=== PATIENT | male | born 1950 | race Caucasian/White ===

== ENCOUNTER → 2017-05-16 | Outpatient (CLI) | payer OTHER | LOC: BHCLAF 08:30 | PROVIDERS: ATTEND Internal Medicine Cardiovascular Disease | DX: R00.2 Palpitations (principal) | CPT/HCPCS: 93306-PO ==

== ENCOUNTER 2017-10-05 08:16 | Emergency (ER) | payer OTHER ==
[2017-10-05 08:31] VITALS: RESP 18; O2SAT 94
[2017-10-05] MEDS ORDERED: AZITHROMYCIN 250 MG TAB PO ONE (09:58)
--- NOTE | 2017-10-05 10:19 | EDPHY ---
H & P Time Seen by Provider: 10/05/17 08:34 HPI/ROS: This patient presents with a one-week history of dry cough and 1 day history of myalgias and fevers. The myalgias and fever started last night. She reports associated mild frontal headache and has relief of the headache from Tylenol. His accompanies him today with similar but more severe symptoms. Vision drove by private vehicle for further evaluation of his symptoms. ROS: Constitutional: No significant fatigue. HEENT: Mild nasal congestion. No ear pain. No throat pain. No facial pain. Pulmonary: No pleuritic pain. No dyspnea. No hemoptysis. Cardiovascular: No lightheadedness. No lower extremity swelling or pain GI: No nausea vomiting or abdominal pain Integumentary: No skin rash Neuro: No confusion. No focal numbness tingling weakness. 10 point ROS is otherwise negative. Past Medical/Surgical History: Hypertension. Social History: Rare alcohol Smoking Status: Never smoked Physical Exam: Physical Exam Vital signs are normal. General: No acute distress HEENT: Nose: Clear discharge bilaterally. No sinus tenderness to percussion. Ears: External canals and tympanic membranes are clear with no erythema or abnormal findings bilaterally. Oropharynx: No erythema or exudates. No dysphonia. No drooling or stridor. Eyes: Pupils equal and react to light. Extraocular motions are intact. Neck: Supple with no meningismus. No lymphadenopathy Lungs: Faint expiratory wheeze. Otherwise clear to auscultation with no rales rhonchi Cardiac: Regular rate and rhythm with no murmur gallop or rub Skin: No rash or pallor. Neuro: Alert with no focal deficits noted. Initial differential diagnosis: URI with cough, bronchitis, doubt pneumonia, influenza Constitutional: Initial Vital Signs Temperature (C) 37 C 10/05/17 08:28 Heart Rate 92 10/05/17 08:28 Respiratory Rate 18 10/05/17 08:28 Blood Pressure 157/72 H 10/05/17 08:28 O2 Sat (%) 94 10/05/17 08:28 O2 Delivery Mode Room Air Allergies/Adverse Reactions: Penicillins Allergy (Intermediate, Verified 10/17/12 11:56) Anaphylaxis Home Medications: Medication Instructions Recorded Acetaminophen [Tylenol 325mg (*)] 325 - 650 mg PO Q4 PRN #0 tab 07/03/16 Aspirin [Aspirin 81mg (*)] 81 mg PO DAILY #0 tab.chew 07/03/16 Albuterol Hfa Anes Only [Proair 2 puffs IH Q4 PRN #1 mdi 10/05/17 Hfa Icu (*)] Azithromycin [Zithromax] 250 mg PO DAILY #6 tab 10/05/17 Lisinopril 10/05/17 Vytorin 10-10 mg Tablet 10/05/17 MDM/Departure - MDM Diagnostics: Rapid Influenza test is negative Medications Given: Discontinued Medications Azithromycin (Zithromax) 500 mg PO EDNOW ONE PRN Reason: Protocol Stop: 10/05/17 09:59 Last Admin: 10/05/17 10:12 Dose: 500 mg ED Course/Re-evaluation: Zithromax Yo Discussion: While patient's symptoms findings are relatively mild at this time , his [place] [id number] and mild rales on exam. For this reason will cover him for potential bacterial bronchitis. Rule out influenza with negative rapid flu - Depart Disposition: Home, Routine, Self-Care Clinical Impression: Acute bronchitis Qualifiers: Bronchitis organism: unspecified organism Qualified Code(s): J20.9 - Acute bronchitis, unspecified Condition: Good Instructions: Acute Bronchitis (ED) Additional Instructions: Diagnosis: Acute bronchitis Plan: Humidifier Albuterol inhaler for cough, wheeze or shortness of breath Zithromax antibiotic Ibuprofen Tylenol for aches as needed Symptoms should improve over the next 3-7 days Return for any significant worsening despite treatment plan. Prescriptions: Albuterol Hfa Anes Only [Proair Hfa Icu (*)] 2 puffs IH Q4 PRN #1 mdi PRN Reason: Wheezing Azithromycin [Zithromax] 250 mg PO DAILY #6 tab Referrals: Benton Ibarra MD [Primary Care Provider] - As per Instructions
[2017-10-05 10:36] VITALS: BP 135/62; PULSE 77; TEMP 98
== END 2017-10-05 10:35 | disposition home or self-care (01) ==
LOC: CED 08:16
DX: J20.9 Acute bronchitis, unspecified (principal); I10 Essential (primary) hypertension; Z79.82 Long term (current) use of aspirin
CPT/HCPCS: 87400-PO